=== PATIENT | male | born 1930 | race African-American/Black ===

== ENCOUNTER 2019-02-03 10:22 | Inpatient (IN) | payer MEDICARE ==
[~2019-02-03] VITALS: Ht 185.4 cm; Wt 84.0 kg
[2019-02-03] MEDS ORDERED: ASPIRIN 81MG TABLET PO ONE (11:15)
[2019-02-03] MEDS ORDERED: NITROGLYCERIN 0.4MG TABLET SL SL PRN (11:15)
[2019-02-03 11:17] LABS: BASOPHILS % 0.7 % (0.0-2.0); EOSINOPHILS % 3.5 % (0.0-5.0); HEMATOCRIT. 43.4 % (42.0-52.0); HEMOGLOBIN. 14.3 g/dL (14.0-18.0); LYMPHOCYTES % 27.4 % (20.0-50.0); MEAN CORPUSCULAR HEMOGLOBIN 33.1 pg (28.0-32.0); MEAN CORPUSCULAR VOLUME 100.5 fL (80.0-94.0); MEAN PLATELET VOLUME 10.2 fl (7.4-10.4); MONOCYTES % 9.7 % (2.0-8.0); NEUTROPHILS % 58.7 % (40.0-76.0); PLATELET 213 x1000/uL (130-400); RED BLOOD CELL COUNT 4.32 mill/uL (4.7-6.1); RED CELL DISTRIBUTION WIDTH 17.2 % (11.6-14.6)
[2019-02-03 11:20] LABS: CHLORIDE 109 mEq/L (98-107)
[2019-02-03 11:25] LABS: D-DIMER 1.82 mg/L FEU (<0.50); INR 1.2; PARTIAL THROMBOPLASTIN TIME 25.8 sec (23.4-31.0); PROTHROMBIN TIME 12.6 sec (9.6-11.0)
[2019-02-03 14:22] VITALS: BP 148/88
[2019-02-03 16:00] VITALS: BP 148/88
[2019-02-03] MEDS ORDERED: PNEUMOCOCCAL 23-VAL P-SAC VAC 0.5 ML IM ONE (19:15)
[2019-02-03 20:00] VITALS: BP 146/87
[2019-02-03] MEDS ORDERED: HYDROCODONE/ACETAMINOPHEN 5/325MG TABLET PO PRN (22:15)
[2019-02-03] MEDS ORDERED: DEXTROSE 50% WATER 50ML SYRINGE IV PRN (22:15)
[2019-02-04] VITALS: BP 100/59
[2019-02-04 00:46] LABS: CREATINE KINASE MB FRACTION 3.4 ng/mL (0.5-3.6)
[2019-02-04 04:00] VITALS: BP 120/75
[2019-02-04] MEDS: BLOOD SUGAR DIAGNOSTIC STRIP TEST SCH ×4 (06:47→20:21)
[2019-02-04] MEDS: INSULIN LISPRO 100 UNITS/ML SUBCUT SCH ×4 (06:47→20:43)
[2019-02-04 08:06] VITALS: BP 128/85
[2019-02-04] MEDS: FUROSEMIDE 20MG/2ML VIAL IVP SCH (08:51)
[2019-02-04] MEDS: ASPIRIN 81MG TABLET PO SCH (08:51)
[2019-02-04] MEDS: ENOXAPARIN 40MG/0.4ML SYR SUBCUT SCH (08:55)
[2019-02-04 11:30] LABS: BASOPHILS % 0.6 % (0.0-2.0); HEMOGLOBIN. 14.3 g/dL (14.0-18.0); LYMPHOCYTES % 29.9 % (20.0-50.0); MEAN CORPUSCULAR HEMOGLOBIN 33.4 pg (28.0-32.0); MEAN CORPUSCULAR VOLUME 100.3 fL (80.0-94.0); MONOCYTES % 11.7 % (2.0-8.0); NEUTROPHILS % 48.8 % (40.0-76.0); PLATELET 218 x1000/uL (130-400); RED BLOOD CELL COUNT 4.29 mill/uL (4.7-6.1)
[2019-02-04 11:56] LABS: CHLORIDE 106 mEq/L (98-107)
[2019-02-04 12:03] LABS: PHOSPHORUS 3.3 mg/dL (2.5-4.9)
[2019-02-04 12:12] LABS: D-DIMER 1.54 mg/L FEU (<0.50); INR 1.2; PARTIAL THROMBOPLASTIN TIME 25.8 sec (23.4-31.0); PROTHROMBIN TIME 12.1 sec (9.6-11.0)
[2019-02-04 12:21] VITALS: BP 110/70
[2019-02-04] MEDS ORDERED: POTASSIUM CHLORIDE 20MEQ TABLET SR PO NR (12:45)
[2019-02-04 16:00] VITALS: BP 109/65
[2019-02-04 16:40] LABS: CREATINE KINASE MB FRACTION 2.7 ng/mL (0.5-3.6)
[2019-02-04] MEDS: VANCOMYCIN HCL 1000 MG/20 ML ORAL PO SCH ×2 (17:42→23:52)
[2019-02-04 20:00] VITALS: BP 115/75
[2019-02-04] MEDS: AMLODIPINE 2.5MG TABLET PO SCH (20:21)
[2019-02-04] MEDS ORDERED: DEXTROSE 50% WATER 50ML SYRINGE IV PRN (21:30)
[2019-02-05] VITALS: BP 112/74
[2019-02-05 04:00] VITALS: BP 139/91
[2019-02-05] MEDS: VANCOMYCIN HCL 1000 MG/20 ML ORAL PO SCH ×4 (06:09→23:45)
[2019-02-05] MEDS: BLOOD SUGAR DIAGNOSTIC STRIP TEST SCH (06:22)
[2019-02-05] MEDS: INSULIN LISPRO 100 UNITS/ML SUBCUT SCH (06:23)
[2019-02-05 07:42] LABS: CREATINE KINASE MB FRACTION 2.3 ng/mL (0.5-3.6)
[2019-02-05 08:00] VITALS: BP 125/65
[2019-02-05] MEDS: ASPIRIN 81MG TABLET PO SCH (09:03)
[2019-02-05] MEDS: ENOXAPARIN 40MG/0.4ML SYR SUBCUT SCH ×2 (09:03→09:08)
[2019-02-05] MEDS: AMLODIPINE 2.5MG TABLET PO SCH ×2 (09:03→21:06)
[2019-02-05] MEDS: FUROSEMIDE 20MG/2ML VIAL IVP SCH (09:04)
[2019-02-05 12:00] VITALS: BP 112/65
[2019-02-05] MEDS ORDERED: REGADENOSON 0.4 MG/5 ML IV NR (14:15)
[2019-02-05] MEDS: LISINOPRIL 5MG TABLET PO SCH (15:18)
[2019-02-05 16:00] VITALS: BP 137/87
[2019-02-05 20:00] VITALS: BP 124/71
[2019-02-05] MEDS: CARVEDILOL 3.125 MG TABLET PO SCH (20:11)
[2019-02-06] VITALS: BP 118/70
[2019-02-06 04:00] VITALS: BP 121/78
[2019-02-06] MEDS: VANCOMYCIN HCL 1000 MG/20 ML ORAL PO SCH ×3 (05:11→18:00)
[2019-02-06] MEDS: INSULIN LISPRO 100 UNITS/ML SUBCUT SCH (07:14)
[2019-02-06] MEDS: BLOOD SUGAR DIAGNOSTIC STRIP TEST SCH (07:14)
[2019-02-06 07:38] LABS: BASOPHILS % 0.8 % (0.0-2.0); EOSINOPHILS % 11.6 % (0.0-5.0); HEMATOCRIT. 39.4 % (42.0-52.0); HEMOGLOBIN. 13.3 g/dL (14.0-18.0); LYMPHOCYTES % 38.8 % (20.0-50.0); MEAN CORPUSCULAR HEMOGLOBIN 33.7 pg (28.0-32.0); MEAN CORPUSCULAR VOLUME 99.7 fL (80.0-94.0); MEAN PLATELET VOLUME 10.5 fl (7.4-10.4); MONOCYTES % 11.5 % (2.0-8.0); NEUTROPHILS % 37.3 % (40.0-76.0); PLATELET 185 x1000/uL (130-400); RED BLOOD CELL COUNT 3.95 mill/uL (4.7-6.1); RED CELL DISTRIBUTION WIDTH 16.5 % (11.6-14.6)
[2019-02-06 08:00] VITALS: BP 118/76
[2019-02-06] MEDS: FUROSEMIDE 20MG/2ML VIAL IVP SCH (09:00)
[2019-02-06] MEDS: CARVEDILOL 3.125 MG TABLET PO SCH ×2 (09:00→21:08)
[2019-02-06] MEDS: ASPIRIN 81MG TABLET PO SCH (09:00)
[2019-02-06] MEDS: LISINOPRIL 5MG TABLET PO SCH (09:00)
[2019-02-06] MEDS: AMLODIPINE 2.5MG TABLET PO SCH (09:00)
[2019-02-06] MEDS ORDERED: REGADENOSON 0.4 MG/5 ML IV ONE (09:18)
[2019-02-06 09:33] LABS: CHLORIDE 108 mEq/L (98-107)
[2019-02-06 09:49] LABS: HDL CHOLESTEROL 31 mg/dL (40-59)
[2019-02-06 09:50] LABS: LDL CHOLESTEROL 88 mg/dL (5-100)
[2019-02-06 12:00] VITALS: BP 121/78
[2019-02-06] MEDS ORDERED: POTASSIUM CHLORIDE 20MEQ TABLET SR PO NR (13:00)
[2019-02-06 16:02] VITALS: BP 121/78
[2019-02-06] MEDS: FUROSEMIDE 20MG TABLET PO SCH (19:53)
[2019-02-06 20:00] VITALS: BP 128/59
[2019-02-07] VITALS: BP 126/61
[2019-02-07] MEDS: VANCOMYCIN HCL 1000 MG/20 ML ORAL PO SCH ×3 (00:53→13:32)
[2019-02-07 04:00] VITALS: BP 124/84
[2019-02-07] MEDS: BLOOD SUGAR DIAGNOSTIC STRIP TEST SCH (06:00)
[2019-02-07] MEDS: INSULIN LISPRO 100 UNITS/ML SUBCUT SCH (06:20)
[2019-02-07 07:09] LABS: BASOPHILS % 0.7 % (0.0-2.0); EOSINOPHILS % 10.8 % (0.0-5.0); HEMATOCRIT. 42.3 % (42.0-52.0); LYMPHOCYTES % 37.8 % (20.0-50.0); MEAN CORPUSCULAR VOLUME 99.6 fL (80.0-94.0); MEAN PLATELET VOLUME 10.4 fl (7.4-10.4); MONOCYTES % 10.2 % (2.0-8.0); NEUTROPHILS % 40.5 % (40.0-76.0); PLATELET 179 x1000/uL (130-400); RED BLOOD CELL COUNT 4.25 mill/uL (4.7-6.1)
[2019-02-07] MEDS: FUROSEMIDE 20MG TABLET PO SCH (07:15)
[2019-02-07 07:16] LABS: CHLORIDE 109 mEq/L (98-107)
[2019-02-07] MEDS: ENOXAPARIN 40MG/0.4ML SYR SUBCUT SCH (09:00)
[2019-02-07] MEDS ORDERED: LISINOPRIL 2.5MG TABLET PO SCH (09:00)
[2019-02-07] MEDS: CARVEDILOL 3.125 MG TABLET PO SCH (10:01)
[2019-02-07] MEDS: ASPIRIN 81MG TABLET PO SCH (10:01)
== END 2019-02-07 16:30 | disposition home or self-care (01) | DRG 372 ==
LOC: ER 10:35 → 5WST 13:53 → EDBEDREQ 13:58 → ENRESERV 14:37
PROVIDERS: ADMIT Internal Medicine; ATTEND Internal Medicine
PROC: 4B02XSZ Measurement of Cardiac Pacemaker, External Approach (ICD-10-PCS; principal; 2019-02-06)
DX: A04.72 Enterocolitis due to Clostridium difficile, not specified as recurrent (principal); I42.9 Cardiomyopathy, unspecified; I20.9 Angina pectoris, unspecified; N28.9 Disorder of kidney and ureter, unspecified; R79.89 Other specified abnormal findings of blood chemistry; I11.0 Hypertensive heart disease with heart failure; I50.9 Heart failure, unspecified; Z95.0 Presence of cardiac pacemaker
CPT/HCPCS: 36415; 71045; 78452; 78582; 80048; 80061; 82550; 82553; 82962; 83735; 83880; 84100; 84484; 85379; 87493; 90732; 93005; 93017; 93306; 96374; 99285; A9500; A9558; J1650; J1940; J2785; J3370